=== PATIENT | female | born 1970 | race Caucasian/White ===

== ENCOUNTER 2017-10-29 06:30 | Day surgery (SDC) | payer OTHER ==
[2017-10-29] MEDS: CEFAZOLIN 2 GM/50 ML (PMX) 50 ML IVPB (07:00)
[2017-10-29] MEDS ORDERED: THROMBIN 5000 UNIT VIAL (07:37)
[2017-10-29] MEDS ORDERED: GELATIN SIZE 100 SPONGE (07:37)
[2017-10-29] MEDS ORDERED: PROPOFOL 20 ML (07:57)
[2017-10-29] MEDS ORDERED: ROCURONIUM 50 MG INJ ×2 (07:57→09:02)
[2017-10-29] MEDS ORDERED: NEOSTIGMINE 3 MG/3 ML SYRINGE ×2 (07:57→08:52)
[2017-10-29] MEDS ORDERED: GLYCOPYRROLATE 0.4 MG INJ ×2 (07:57→08:52)
[2017-10-29] MEDS ORDERED: LIDOCAINE 2% (SDV) 5 ML INJ (07:57)
[2017-10-29] MEDS ORDERED: SUCCINYLCHOLINE CHLORIDE 100 MG/5 ML SYG IV (07:57)
[2017-10-29] MEDS ORDERED: MEPERIDINE 100 MG INJ (07:57)
[2017-10-29] MEDS ORDERED: NALOXONE (0.4 MG/ML) INJ IV (08:00)
[2017-10-29] MEDS ORDERED: DIPHENHYDRAMINE 25 MG CAP PO (08:00)
[2017-10-29] MEDS ORDERED: DIPHENHYDRAMINE 50 MG INJ IV ×2 (08:00→10:30)
[2017-10-29] MEDS ORDERED: MAGNESIUM HYDROXIDE 30ML CUP PO (08:00)
[2017-10-29] MEDS ORDERED: ACETAMINOPHEN 325 MG TAB PO (08:00)
[2017-10-29] MEDS ORDERED: PROCHLORPERAZINE 10 MG INJ IV (08:00)
[2017-10-29] MEDS: BUPIVACAINE 0.25% (MPF) 30 ML INJ (08:24)
[2017-10-29] MEDS: BUPIVACAINE 0.5%/EPI (SDV) 30 ML INJ (08:24)
[2017-10-29] MEDS: POLYMYXIN/BACITRACIN 1L IRRIG (08:24)
[2017-10-29] MEDS ORDERED: CEFAZOLIN 1 GM INJ (08:52)
[2017-10-29] MEDS: CA CHLORIDE 10% 10 ML SYRINGE ZFS (09:07)
[2017-10-29] MEDS: CA CHLORIDE 10% 10 ML SYRINGE (09:07)
[2017-10-29] MEDS ORDERED: ONDANSETRON 4 MG INJ (09:45)
[2017-10-29] MEDS ORDERED: METOCLOPRAMIDE 10 MG INJ (09:45)
[2017-10-29] MEDS ORDERED: LABETALOL HCL 20MG INJ (09:45)
[2017-10-29] MEDS: FENTAnyl 50 MCG/ML VIAL ×2 (10:00)
[2017-10-29] MEDS ORDERED: ONDANSETRON 4 MG INJ IV (10:30)
[2017-10-29] MEDS ORDERED: OXYCODONE/ACETAMINOPHEN (5/325) TAB PO ×2 (10:30)
[2017-10-29] MEDS ORDERED: METOCLOPRAMIDE 10 MG INJ IV (10:30)
[2017-10-29] MEDS ORDERED: EPHEDrine SULFATE 50 MG/5 ML SYG IV (10:30)
[2017-10-29] MEDS ORDERED: MIDAZOLAM 1 MG/ML 2 ML INJ IV (10:30)
[2017-10-29] MEDS ORDERED: HYDROmorphONE (0.2 MG/ML) 10ML SYG IV ×2 (10:30)
[2017-10-29] MEDS ORDERED: hydrALAzine 20 MG INJ IV (10:30)
[2017-10-29] MEDS ORDERED: LABETALOL HCL 20MG INJ IV (10:30)
[2017-10-29] MEDS ORDERED: FENTAnyl 50 MCG/ML VIAL IV ×3 (10:30)
[2017-10-29] MEDS ORDERED: NALOXONE (0.4 MG/ML) INJ (10:34)
[2017-10-29] MEDS: ONDANSETRON 4 MG INJ IV (11:13)
[2017-10-29] MEDS: MEPERIDINE 25 MG INJ IV (11:14)
[2017-10-29] MEDS ORDERED: CEFAZOLIN 1 GM/50 ML (PMX) 50 ML IVPB (12:00)
[2017-10-29] MEDS: HYDROmorphONE (0.2 MG/ML) 10ML SYG IV (13:08)
[2017-10-29] MEDS: D5W-0.45 NACL + KCL 20 MEQ 1,000 ML IV (14:30)
[2017-10-29] MEDS: CEFAZOLIN 1 GM/50 ML (PMX) 50 ML IVPB ×2 (14:32→21:47)
[2017-10-29] MEDS: HYDROmorphONE 0.5 MG/0.5 ML SYG IV ×3 (15:23→21:58)
[2017-10-29] MEDS: HYDROCODONE/APAP (5/325) TAB PO ×2 (16:36→20:38)
[2017-10-29] MEDS: CYCLOBENZAPRINE 10 MG TAB PO (19:42)
[2017-10-29] MEDS: DOCUSATE SODIUM 100 MG CAP PO (20:38)
[2017-10-30] MEDS: HYDROCODONE/APAP (5/325) TAB PO ×3 (00:36→12:39)
[2017-10-30] MEDS: HYDROmorphONE 0.5 MG/0.5 ML SYG IV ×2 (02:24→06:36)
[2017-10-30] MEDS: CYCLOBENZAPRINE 10 MG TAB PO (04:44)
[2017-10-30] MEDS: PANTOPRAZOLE (EC) 40 MG TAB PO (05:18)
[2017-10-30] MEDS: CEFAZOLIN 1 GM/50 ML (PMX) 50 ML IVPB (05:19)
[2017-10-30] MEDS: D5W-0.45 NACL + KCL 20 MEQ 1,000 ML IV (08:00)
[2017-10-30] MEDS: DOCUSATE SODIUM 100 MG CAP PO (09:14)
== END 2017-10-30 12:51 | disposition home or self-care (01) ==
LOC: SDS 06:30 → MS1 20:06 → SDS 06:30 → REC 13:05 → SDS 07:30 → REC 07:31 → SDS 07:30 → MS1 13:05 → SDS 10-30 12:51
DX: M51.26 Other intervertebral disc displacement, lumbar region (principal)
CPT/HCPCS: 63047; 72100; 86850; 86900; 86901; 86999; 88304; 97116; 97163; 97166; 97530; 97535

== ENCOUNTER 2018-03-25 08:01 | Day surgery (SDC) | payer OTHER ==
[~2018-03-25 08:01] MED LIST: CEFAZOLIN 2 GM/50 ML (PMX) 50 ML IVPB; LACTATED RINGER'S 1,000 ML IV*
[2018-03-25] MEDS ORDERED: POLYMYXIN/BACITRACIN 1L IRRIG (10:01)
[2018-03-25] MEDS ORDERED: BUPIVACAINE 0.25%/EPI (SDV) 30 ML INJ (10:06)
[2018-03-25] MEDS ORDERED: GELATIN SIZE 100 SPONGE (10:06)
[2018-03-25] MEDS ORDERED: LIDOCAINE 2% (SDV) 5 ML INJ (10:24)
[2018-03-25] MEDS ORDERED: PROPOFOL 20 ML (10:24)
[2018-03-25] MEDS ORDERED: SUCCINYLCHOLINE CHLORIDE 100 MG/5 ML SYG IV ×2 (10:24→10:25)
[2018-03-25] MEDS ORDERED: MIDAZOLAM 1 MG/ML 2 ML INJ (10:24)
[2018-03-25] MEDS ORDERED: ROCURONIUM 50 MG INJ (10:25)
[2018-03-25] MEDS ORDERED: SUGAMMADEX SODIUM 200 MG/2 ML VIAL IV (10:26)
[2018-03-25] MEDS ORDERED: METOCLOPRAMIDE 10 MG INJ (10:26)
[2018-03-25] MEDS ORDERED: NACL 0.9% 3 ML SYG IV (10:30)
[2018-03-25] MEDS ORDERED: CEPASTAT LOZENGE MT (10:30)
[2018-03-25] MEDS: POLYMYXIN/BACITRACIN 1L IRRIG IRR (10:30)
[2018-03-25] MEDS ORDERED: NALOXONE (0.4 MG/ML) INJ IV (10:30)
[2018-03-25] MEDS ORDERED: CYCLOBENZAPRINE 10 MG TAB PO (10:30)
[2018-03-25] MEDS ORDERED: HYDROCODONE/APAP (5/325) TAB PO ×2 (10:30)
[2018-03-25] MEDS ORDERED: ACETAMINOPHEN 325 MG TAB PO (10:30)
[2018-03-25] MEDS: BUPIVACAINE 0.25%/EPI (SDV) 30 ML INJ INJ (10:30)
[2018-03-25] MEDS ORDERED: FENTAnyl 50 MCG/ML VIAL (10:46)
[2018-03-25] MEDS ORDERED: DEXAMETHASONE 4 MG/ML 1 ML INJ (11:26)
[2018-03-25] MEDS: THROMBIN 5000 UNIT VIAL (11:28)
[2018-03-25] MEDS: HEPARIN 1000 UNITS/ML 10 ML INJ (11:28)
[2018-03-25] MEDS: FENTAnyl 50 MCG/ML VIAL (11:28)
[2018-03-25] MEDS: CA CHLORIDE 10% 10 ML SYRINGE (11:28)
[2018-03-25] MEDS ORDERED: LABETALOL HCL 20MG INJ (11:52)
[2018-03-25] MEDS ORDERED: KETAMINE (100 MG/ML) 5 ML VIAL (12:17)
[2018-03-25] MEDS: BUPIVACAINE 0.25% (MPF) 30 ML INJ (12:33)
[2018-03-25] MEDS ORDERED: FENTAnyl 50 MCG/ML VIAL IV (13:30)
[2018-03-25] MEDS ORDERED: MIDAZOLAM 1 MG/ML 2 ML INJ IV (13:30)
[2018-03-25] MEDS ORDERED: IPRATROPIUM (NEB) 0.5 MG/2.5 ML AMP HHN (13:30)
[2018-03-25] MEDS ORDERED: ONDANSETRON 4 MG INJ IV (13:30)
[2018-03-25] MEDS ORDERED: LORAZEPAM 2 MG INJ IV (13:30)
[2018-03-25] MEDS ORDERED: MEPERIDINE 25 MG INJ IV (13:30)
[2018-03-25] MEDS ORDERED: LABETALOL HCL 20MG INJ IV (13:30)
[2018-03-25] MEDS ORDERED: HYDROmorphONE 1 MG/5 ML IV SYRINGE IV ×2 (13:30)
[2018-03-25] MEDS ORDERED: hydrALAzine 20 MG INJ IV (13:30)
[2018-03-25] MEDS ORDERED: DIPHENHYDRAMINE 50 MG INJ IV (13:30)
[2018-03-25] MEDS: CEFAZOLIN 1 GM/50 ML (PMX) 50 ML IVPB (13:31)
[2018-03-25] MEDS: HYDROmorphONE 1 MG/5 ML IV SYRINGE IV (14:10)
[2018-03-25] MEDS: FENTAnyl 50 MCG/ML VIAL IV (15:30)
== END 2018-03-25 18:00 | disposition home or self-care (01) ==
LOC: SDS 08:01
DX: M51.27 Other intervertebral disc displacement, lumbosacral region (principal); M48.07 Spinal stenosis, lumbosacral region
CPT/HCPCS: 63030; 72100; 84703; 86850; 86900; 86901; 86999; 88304